=== PATIENT | female | born 1995 | race Caucasian/White ===

== ENCOUNTER 2018-04-17 18:08 | Emergency (ER) | payer OTHER ==
[2018-04-17 19:02] VITALS: BP 134/70
--- NOTE | 2018-04-17 19:31 | UC ---
Skin Complaint HPI - HPI Summary HPI Summary: 22 year old female reports noticed some tenderness under her left eye 2 days ago. Today noticed some mild erythema, localized swelling, with central crusting. Denies injury, fever, chills, visual disturbances, pain in the eye, eye redness, or discharge. - History of Current Complaint Chief Complaint: UCEye Time Seen by Provider: 04/17/18 19:14 Stated Complaint: SKIN UNDER LEFT EYE ISSUE Hx Obtained From: Patient Hx Last Menstrual Period: 04/17/18 ?: No Onset/Duration: Gradual Onset Onset Severity: Mild Current Severity: Mild Pain Intensity: 1 Location: Discrete - lower left eyelid Character: Redness, Painful Aggravating Factor(s): Touch Alleviating Factor(s): Nothing Associated Signs & Symptoms: Positive: Negative - Allergy/Home Medications Allergies/Adverse Reactions: Allergies Allergy/AdvReac Type Severity Reaction Status Date / Time No Known Allergies Allergy Verified 04/17/18 18:54 Review of Systems Constitutional: Negative Skin: Other - See HPI Eyes: Negative Is Patient Immunocompromised?: No All Other Systems Reviewed And Are Negative: Yes PMH/Surg Hx/FS Hx/Imm Hx - Additional Past Medical History Additional PMH: noncontributory Previously Healthy: Yes - Surgical History Surgical History: None - Family History Family History: noncontributory - Social History Occupation: Student Lives: Dormitory/Roommates Alcohol Use: Occasionally Substance Use Type: None Smoking Status (MU): Never Smoked Tobacco Physical Exam Triage Information Reviewed: Yes Appearance: Well-Appearing, No Pain Distress, Obese Vital Signs: Initial Vital Signs Temp 97.9 F 04/17/18 18:55 Pulse 80 04/17/18 18:55 Resp 18 04/17/18 18:55 BP 134/70 04/17/18 18:55 Pulse Ox 100 04/17/18 18:55 Vital Signs Reviewed: Yes Eye Exam: Normal Neck: Positive: Supple, Nontender, No Lymphadenopathy Respiratory: Positive: No respiratory distress Neurological: Positive: Alert Skin: Positive: significant lesion(s) - See diagram Course/Dx - Course Course Of Treatment: 22 year old female with 2 day history of tender erythema to left lower eyelid. Lesion is consistent with a localized infection of the skin. Eye and vision remain intact. Will treat with course of Keflex and topical mupirocin. She is to seek medical attention for re-evaluation if no improvement or if there is any involvement of the eye or disturbances to her vision. Verbalizes understanding and agrees with POC. - Diagnoses Provider Diagnoses: localized skin infection left lower eyelid Discharge - Sign-Out/Discharge Documenting (check all that apply): Patient Departure All imaging exams completed and their final reports reviewed: No Studies - Discharge Plan Condition: Stable Disposition: HOME Prescriptions: Cephalexin CAP* [Keflex 500 CAP*] 500 mg PO TID #15 cap Mupirocin 2% CREAM* [Bactroban 2% CREAM*] 1 applic TOPICAL BID #1 tube Patient Education Materials: Acute Wound Care (ED) Referrals: No Primary Care Phys,NOPCP [Primary Care Provider] - Additional Instructions: Take cephalexin 1 cap orally three times a day for 5 days. Apply mupirocin cream to affected area twice a day until lesion is healed. Return if there is no improvement in symptoms. Seek immediate medical attention in the emergency room if you develop severe pain in the eye, visual disturbances, loss of vision, or any worsening of symptoms. - Billing Disposition and Condition Condition: STABLE Disposition: Home Images Head: 1 - Approximately 1 cm area of tender erythema with central crusting
== END 2018-04-17 19:44 | disposition home or self-care (01) ==
LOC: UCCORT 18:08
DX: H01.9 Unspecified inflammation of eyelid (principal)
CPT/HCPCS: 99202; G0463

== ENCOUNTER 2019-04-30 15:41 | Emergency (ER) | payer MEDICAID, OTHER ==
[2019-04-30 16:08] VITALS: BP 134/68
--- NOTE | 2019-04-30 16:17 | ED ---
Throat Pain/Nasal Congestion - HPI Summary HPI Summary: 23yr old female with a couple of weeks of left ear pain, and she feels like the ear is plugged. She states she feels like her hearing is off as well. No fever or chills. No runny nose, no sore throat. No other complaints. - History of Current Complaint Chief Complaint: UCEar Time Seen by Provider: 04/30/19 15:55 - Allergies/Home Medications Allergies/Adverse Reactions: Allergies Allergy/AdvReac Type Severity Reaction Status Date / Time No Known Allergies Allergy Verified 04/30/19 16:08 PMH/Surg Hx/FS Hx/Imm Hx Infectious Disease History: No Infectious Disease History: Denies: Traveled Outside the [place] in Last 30 Days - Family History Known Family History: Positive: None Family History: noncontributory - Social History Occupation: Student Alcohol Use: Occasionally Substance Use Type: Reports: None Smoking Status (MU): Never Smoked Tobacco Review of Systems Constitutional: Negative Positive: Ear Ache All Other Systems Reviewed And Are Negative: Yes Physical Exam Triage Information Reviewed: Yes Vital Signs On Initial Exam: Initial Vitals Temp Pulse Resp BP Pulse Ox 98.7 F 77 16 134/68 99 04/30/19 16:05 04/30/19 16:05 04/30/19 16:05 04/30/19 16:05 04/30/19 16:05 Vital Signs Reviewed: Yes Appearance: Positive: Well-Appearing, No Pain Distress Skin: Positive: Warm, Skin Color Reflects Adequate Perfusion Head/Face: Positive: Normal Head/Face Inspection Eyes: Positive: EOMI, NARCISO ENT: Positive: Pharyngeal erythema, Nasal congestion, TM red - left with effusion Neck: Positive: Nontender Respiratory/Lung Sounds: Positive: Other - normal effort. Negative: Stridor Cardiovascular: Positive: Pulses are Symmetrical in both Upper and Lower Extremities Abdomen Description: Negative: Distended Musculoskeletal: Positive: Strength/ROM Intact Neurological: Positive: Sensory/Motor Intact, Alert, Oriented to Person Place, Time, CN Intact II-III, Normal Gait, Speech Normal Psychiatric: Positive: Normal Diagnostics - Vital Signs Vital Signs Temp Pulse Resp BP Pulse Ox 04/30/19 16:05 98.7 F 77 16 134/68 99 - Laboratory Lab Statement: Any lab studies that have been ordered have been reviewed, and results considered in the medical decision making process. EENT Course/Dx - Course Course Of Treatment: 23 yr old with left otitis media. DC home. - Diagnoses Provider Diagnoses: Left otitis media Discharge ED - Sign-Out/Discharge Documenting (check all that apply): Patient Departure All imaging exams completed and their final reports reviewed: No Studies - Discharge Plan Condition: Good Disposition: HOME Prescriptions: Amoxicillin/Clavulanate TAB* [Augmentin TAB 875*] 875 mg PO BID #20 tab Patient Education Materials: Ear Infection (ED) Referrals: No Primary Care Phys,NOPCP [Primary Care Provider] - [facility] [Outside] - 2 Days - Billing Disposition and Condition Condition: GOOD Disposition: Home
== END 2019-04-30 16:27 | disposition home or self-care (01) ==
LOC: UCCORT 15:41
DX: H66.92 Otitis media, unspecified, left ear (principal)
CPT/HCPCS: 99212; G0463